=== PATIENT | female | born 1945 | race Caucasian/White ===

== ENCOUNTER 2016-08-19 14:39 | Emergency (ER) | payer OTHER ==
--- NOTE | 2016-08-19 14:56 | EDPHY ---
H & P Stated Complaint: TIRED/HAVING PROB WITH HIGHER THAN NL BLOOD PRESSURE HPI/ROS: CHIEF COMPLAINT: Fatigue, ankle edema HISTORY OF PRESENT ILLNESS: The patient is a 71 y/o female complaining of fatigue and bilateral ankle edema for the last week. She first noticed slight edema in her right ankle beginning 3 months ago. Her PCP, Dr. Anderson, placed her on 12.5mg hydrochlorothiazide, which the patient states she has been taking appropriately. This was not associated with shortness of breath until this morning. After climbing 3 flights of stairs she felt like she had to "forcibly exhale," but recovered quickly upon sitting down. She notes one brief episode of mild chest tightness that lasted only seconds a few days ago. Her PCP's office recommended going to the ED to be evaluated for heart failure today. She also feels like her pulse is elevated at 87 and says her BP has been running "high" at 130-120 systolic and around 85 diastolic. She has a history of chronic sinusitis and denies any changes to those symptoms. She denies recent illness, fever, vomiting, diarrhea, dysuria, or abdominal pain. REVIEW OF SYSTEMS: A ten point review of systems was performed and is negative with the exception of the items mentioned in the HPI. Source: Patient Exam Limitations: No limitations - Personal History Current Tetanus/Diphtheria Vaccine: Yes - Medical/Surgical History PMH: PMH includes: 1. Chronic sinusitis 2. Ankle edema 3. Anxiety 4. GERD Family history: heart failure Hx Asthma: No Hx Chronic Respiratory Disease: No Hx Diabetes: No Hx Cardiac Disease: No Hx Renal Disease: No Hx Cirrhosis: No Hx Alcoholism: No Hx HIV/AIDS: No Hx Splenectomy or Spleen Trauma: No Other PMH: BACK PROBLEMS/TUBAL LIGATION/ GERD/HIATAL HERNIA - Social History Smoking Status: Never smoked Additional Social History: Non-smoker. Drinks more than one glass of wine nightly. 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 PCP: Dr. Anderson - Physical Exam Exam: General Appearance: Alert. Vital signs reviewed. Blood pressure 139/80 Eyes: Pupils equal and round, no conjunctival injection, no discharge. Anicteric. ENT, Mouth: Mucous membranes are moist, no oropharyngeal erythema or edema. Neck: No lymphadenopathy, supple. No JVD. Respiratory: Lungs are clear to auscultation; no wheezes, rales, or rhonchi. Cardiovascular: Regular rate and rhythm; no murmur, rub, or gallop. Gastrointestinal: Abdomen is soft and nontender, no masses or organomegaly, bowel sounds normal. Skin: Warm and dry, no rashes on exposed skin, normal color. Back: Nontender to palpation over the thoracolumbar spine. No CVAT. Extremities: Trace ankle edema slightly worse on right, no calf tenderness or swelling. Neurological: Alert and oriented. Moving all four extremities easily and equally. Psychiatric: Normal affect. Constitutional: Initial Vital Signs Temperature (C) 36.5 C 08/19/16 14:45 Heart Rate 86 08/19/16 14:45 Respiratory Rate 16 08/19/16 14:45 Blood Pressure 139/80 H 08/19/16 14:45 O2 Sat (%) 94 08/19/16 14:45 O2 Delivery Mode Room Air Allergies/Adverse Reactions: morphine Allergy (Verified 08/19/16 14:42) Home Medications: Medication Instructions Recorded Clonazepam [Klonopin] 1 mg PO HS 06/30/11 OLANZAPINE [Zyprexa] 2.5 mg PO HS 06/30/11 Paroxetine HCl 20 mg PO DAILY 06/30/11 RISEDRONATE SODIUM [Actonel] 0 mg PO .MONTHLY 06/30/11 lamoTRIgine [Lamictal] 150 mg PO DAILY 06/30/11 Gabapentin 08/19/16 Hydrochlorothiazide 08/19/16 Lipitor 08/19/16 PRILOSEC 08/19/16 Paxil 08/19/16 Medical Decision Making - Diagnostics EKG Interpretation: The 12 lead EKG was interpreted by myself. EKG shows sinus rhythm rate 77, probable inferior infarct of indeterminate age. No previous EKGs available to compare. See hard copy and/or "tracemaster" electronic copy for interpretation. Imaging: Study: Chest x-ray Indication: Dyspnea Results: Chest x-ray was obtained. The results of the study are 1. Mild bronchitis. 2. No edema or pneumonia. The study was read by the radiologist, Dr. Genao. I viewed the images myself on the PACS system. ED Course/Re-evaluation: This is a 71 y/o female presenting to the ED at the referral of her PCP after a short episode of "forced exhaling" after climbing stairs today in the setting of ongoing mild ankle edema for 2-3 months. This was not associated with shortness of breath, chest pain, fever, lightheadedness, or syncope and respiratory symptoms are not present at time of assessment. She has trace edema to both ankles, worse on the right. Her lungs are clear. Plan for IV, labs including troponin, UA, EKG and chest x-ray. 1705: Repeat BP is 140/90. The patient's workup is largely unremarkable. Chest x-ray does not show evidence of CHF. Troponin is negative. EKG shows sinus rhythm. I discussed these results with her. She will be discharged home with instructions to follow up with her PCP next week as well as return precautions. She will check her blood pressure twice daily and record the readings. She will continue the increased dosing of her hydrochlorothiazide at 25mg daily. She is comfortable with this plan. Differential Diagnosis: I do not find evidence of congestive heart failure/pulmonary edema on her exam or chest x-ray. I do not suspect acute coronary syndrome. She had a very brief episode of chest pain that resolved within seconds and this occurred a few days ago. Troponin tonight is normal. There is nothing that makes me think this could be pulmonary embolus. She does not appear to have infection and I am not concerned about the possibility of pneumonia, influenza, or other infectious process. - Data Points Laboratory Results: Laboratory Results 08/19/16 15:25 08/19/16 15:25 08/19/16 08/19/16 15:45 15:25 WBC 7.38 10^3/uL (3.80-9.50) RBC 4.06 L 10^6/uL (4.18-5.33) Hgb 12.3 L g/dL (12.6-16.3) Hct 36.7 L % (38.0-47.0) MCV 90.4 fL (81.5-99.8) MCH 30.3 pg (27.9-34.1) MCHC 33.5 g/dL (32.4-36.7) RDW 15.4 H % (11.5-15.2) Plt Count 316 10^3/uL (150-400) MPV 9.0 fL (8.7-11.7) Neut % (Auto) 77.0 H % (39.3-74.2) Lymph % (Auto) 14.9 L % (15.0-45.0) [place] % (Auto) 5.4 % (4.5-13.0) Eos % (Auto) 2.0 % (0.6-7.6) Baso % (Auto) 0.3 % (0.3-1.7) Nucleat RBC Rel Count 0.0 % (0.0-0.2) Absolute Neuts (auto) 5.68 10^3/uL (1.70-6.50) Absolute Lymphs (auto) 1.10 10^3/uL (1.00-3.00) Absolute Monos (auto) 0.40 10^3/uL (0.30-0.80) Absolute Eos (auto) 0.15 10^3/uL (0.03-0.40) Absolute Basos (auto) 0.02 10^3/uL (0.02-0.10) Absolute Nucleated RBC 0.00 10^3/uL (0-0.01) Immature Gran % 0.4 % (0.0-1.1) Immature Gran # 0.03 10^3/uL (0.00-0.10) Sodium 139 mEq/L (134-144) Potassium 3.9 mEq/L (3.5-5.2) Chloride 102 mEq/L (97-110) Carbon Dioxide 27 mEq/l (22-31) Anion Gap 10 mEq/L (8-16) BUN 16 mg/dL (7-23) Creatinine 1.0 mg/dL (0.6-1.0) Estimated GFR 55 Glucose 93 mg/dL (70-100) Calcium 9.6 mg/dL (8.5-10.4) Troponin I < 0.012 ng/mL (0-0.034) Urine RBC 1-3 /hpf (0-3) Urine WBC 1-3 /hpf (0-3) Ur Epithelial Cells NONE SEEN /lpf (NONE-1+) Urine Bacteria TRACE H /hpf (NONE SEEN) Hyaline Casts 1-5 /lpf (0-1) Departure - Departure Disposition: Home, Routine, Self-Care Clinical Impression: Ankle edema Condition: Good Instructions: Leg Edema (ED) Additional Instructions: 1. Elevate your legs above the level of your heart when possible. 2. Check your blood pressure once in the morning and once in the evening. Record your measurements for the next week and bring to your next appointment with your PCP. 3. Increase your hydrochlorothiazide to 25mg daily. 4. Follow up with your primary care provider next week. 5. Return to the ED for shortness of breath, chest pain, lightheadedness, fainting, or other worsening of condition. Referrals: Holly Anderson MD [Primary Care Provider] - As per Instructions Report Scribed for: Tori Amin Report Scribed by: Dorothea Alcocer Date of Report: 08/19/16 Time of Report: 14:57
[2016-08-19 15:33] LABS: % IMMATURE GRANULYOCYTES 0.4 % (0.0-1.1); ABSOLUTE IMMATURE GRANULOCYTES 0.03 10^3/uL (0.00-0.10); ADD DIFF? NO; ADD MORPH? NO; ADD SCAN? NO; ATYPICAL LYMPHOCYTE FLAG 10 (0-99); FRAGMENT RBC FLAG 0 (0-99); HEMATOCRIT 36.7 % (38.0-47.0); HEMOGLOBIN 12.3 g/dL (12.6-16.3); LEFT SHIFT FLG 0 (0-99); LIPEMIA HEMOLYSIS FLAG 80 (0-99); MEAN CELL HEMOGLOBIN 30.3 pg (27.9-34.1); MEAN CELL HEMOGLOBIN CONCENTR. 33.5 g/dL (32.4-36.7); MEAN CELL VOLUME 90.4 fL (81.5-99.8); PLATELET CLUMPS FLAG 0 (0-99); PLATELET COUNT 316 10^3/uL (150-400); RED BLOOD CELL COUNT 4.06 10^6/uL (4.18-5.33); RED CELL DISTRIBUTION WIDTH 15.4 % (11.5-15.2)
--- NOTE | 2016-08-19 15:38 | CPEKG ---
Heart Rate: 77 RR Interval: 779 P-R Interval: 156 QRSD Interval: 90 QT Interval: 408 QTC Interval: 462 P Paradise: 51 QRS Paradise: -17 T Wave Paradise: -28 EKG Severity - ABNORMAL ECG - EKG Impression: SINUS RHYTHM EKG Impression: PROBABLE INFERIOR INFARCT, AGE INDETERMINATE EKG Impression: CONSIDER ANTERIOR INFARCT Electronically Signed By: Tori Amin 19-Aug-2016 20:37:09
[2016-08-19 15:43] LABS: ANION GAP 10 mEq/L (8-16); CALCIUM 9.6 mg/dL (8.5-10.4); CARBON DIOXIDE 27 mEq/l (22-31); CHLORIDE 102 mEq/L (97-110); GLOMERULAR FILTRATION RATE 55; GLUCOSE 93 mg/dL (70-100); POTASSIUM 3.9 mEq/L (3.5-5.2); SODIUM 139 mEq/L (134-144)
[2016-08-19 15:55] LABS: TROPONIN I < 0.012 ng/mL (0-0.034)
--- NOTE | 2016-08-19 16:01 | DX ---
PA and Lateral Chest August 19, 2016 Indication: Dyspnea Comparison: Two-view chest dated August 25, 2006 Findings: Lungs are clear except for mild unchanged diffuse peribronchial thickening. New linear opac ity in the peripheral the left base is likely atelectasis. No confluent airspace consolidation, edema , or effusion. The hiatal hernia, tortuous thoracic aorta and multilevel degenerative disease are unc hanged. Heart size remains upper normal. Impression: 1. Mild bronchitis. 2. No edema or pneumonia.
[2016-08-19 16:18] LABS: BACTERIA TRACE /hpf (NONE SEEN)
[2016-08-19 17:17] VITALS: BP 147/94; PULSE 75; RESP 14; TEMP 97.2; O2SAT 96
== END 2016-08-19 17:27 | disposition home or self-care (01) ==
DX: R60.9 Edema, unspecified (principal)

== ENCOUNTER → 2016-10-25 | Outpatient (CLI) | payer OTHER | LOC: FIMAGING 15:36 | DX: Z12.31 Encounter for screening mammogram for malignant neoplasm of breast (principal) | CPT/HCPCS: G0202 ==

== ENCOUNTER → 2016-12-14 | Outpatient (CLI) | payer OTHER | LOC: FIMAGING 11:15 | PROVIDERS: ATTEND Internal Medicine | DX: Z13.820 Encounter for screening for osteoporosis (principal); M85.80 Other specified disorders of bone density and structure, unspecified site ==

== ENCOUNTER → 2017-11-01 | Outpatient (CLI) | payer OTHER | LOC: FIMAGING 09:28 | PROVIDERS: ATTEND Internal Medicine | DX: Z12.31 Encounter for screening mammogram for malignant neoplasm of breast (principal) ==

== ENCOUNTER → 2017-11-24 | Outpatient (CLI) | payer OTHER | LOC: FIMAGING 08:44 | PROVIDERS: ATTEND Internal Medicine | DX: R10.11 Right upper quadrant pain (principal) ==

== ENCOUNTER → 2017-12-12 | Outpatient (CLI) | payer OTHER | LOC: FIMAGING 10:54 | PROVIDERS: ATTEND Internal Medicine Gastroenterology | DX: R10.11 Right upper quadrant pain (principal) | CPT/HCPCS: A9537 ==

== ENCOUNTER → 2018-01-09 | Outpatient (CLI) | payer OTHER ==
[~2018-01-09] MED LIST: IOPAMIDOL (ISOVUE-300) 100 ML BTL ONE
== END ==
LOC: FIMAGING 10:14
PROVIDERS: ATTEND Internal Medicine Gastroenterology
DX: Z98.890 Other specified postprocedural states (principal); Z95.1 Presence of aortocoronary bypass graft; J90 Pleural effusion, not elsewhere classified
CPT/HCPCS: 74177; Q9967

== ENCOUNTER → 2018-02-08 | Outpatient (CLI) | payer OTHER ==
[~2018-02-08] MED LIST changes: +GADOBUTROL 10 ML VIAL IVP ONE; -IOPAMIDOL (ISOVUE-300) 100 ML BTL ONE
== END ==
LOC: FIMAGING 15:09
PROVIDERS: ATTEND Physician Assistant
DX: K44.9 Diaphragmatic hernia without obstruction or gangrene (principal); K76.89 Other specified diseases of liver
CPT/HCPCS: 74183; A9585

== ENCOUNTER 2018-04-17 17:08 | Observation (INO) | payer OTHER ==
[2018-04-17] MEDS ORDERED: MAGNESIUM SULF 2 GM/WATER 50 ML IV ONE (18:21)
[2018-04-17] MEDS ORDERED: ONDANSETRON 4 MG/2 ML VIAL IVP PRN (18:21)
[2018-04-17] MEDS ORDERED: KETOROLAC 30 MG/1 ML SDV IVP PRN (18:21)
[2018-04-17] MEDS ORDERED: HYDROCODONE/APAP 5/325 TAB PO PRN (18:21)
[2018-04-17] MEDS ORDERED: D5W 1/2 NS W/ 20 KCl/L 1,000 ML IV SCH (18:30)
--- NOTE | 2018-04-17 18:55 | GHP ---
DATE OF ADMISSION: 04/17/2018 REASON FOR ADMISSION: Postoperative hypotension. HISTORY OF PRESENT ILLNESS: 73-year-old female status post uncomplicated laparoscopic cholecystectomy at the ambulatory surgery center this afternoon. While in recovery the patient was noted to be hypotensive. She initially responded to fluids and a dose of ephedrine. She was being ready to be discharged and had a near syncopal event when standing with a repeat low blood pressure down to the 50s and 60s. She was given additional fluids and medications with immediate response. She is being admitted at this time for overnight observation. At present time, post resuscitation, the patient is without complaints. She denies chest pains or shortness of breath. She has no abdominal complaints. She has no lightheadedness or dizziness at present time. She does report to having had significant episodes of diarrhea last evening and this morning, as well as minimal p.o. intake. She remains on chronic diuretic therapy as well. PAST MEDICAL HISTORY: Bipolar disease, hypertension, hyperlipidemia, and GERD. PAST SURGICAL HISTORY: Laparoscopic cholecystectomy and tubal ligation. MEDICATIONS: Triamterene/hydrochlorothiazide, atorvastatin, metoprolol, Hycosamine, Paxil, clonazepam, trazodone, Protonix, ranitidine. ALLERGIES: Lisinopril (cough), Augmentin (GI upset). SOCIAL HISTORY: No alcohol, no tobacco. She is . PHYSICAL EXAM: VITAL SIGNS: Blood pressure 120/70, upon discharge. Pulse rate in 70s. GENERAL: The patient is alert, appropriate, comfortable at present time. EYES: Anicteric. NECK: No cervical lymphadenopathy. SKIN: Color good. HEART: Regular without murmurs. LUNGS: Clear bilaterally. ABDOMEN: Soft, nondistended. Minimal incisional tenderness. EXTREMITIES: Without edema. Skin without tenting. NEUROLOGIC: Alert and appropriate x3. LABS: Postoperative hemoglobin 12. Sodium 132, potassium 3.8, chloride 97, CO2 was 28, BUN 13, creatinine 0.7, glucose 138, magnesium 1.4. EKG: Normal sinus rhythm, 75 beats per minute. No acute changes, possible age- indeterminate prior [place] findings. IMPRESSION: Postoperative hypotension, most likely secondary to recent diarrhea , dehydration, and chronic diuretic and antipsychotic therapy. PLAN: Patient is being admitted for overnight observation, fluid resuscitation , any further necessary workup pending the clinical course. /[id number]/MODL MTDD
[2018-04-17] MEDS ORDERED: traZODone 50 MG TAB PO SCH (21:00)
[2018-04-17] MEDS ORDERED: FAMOTIDINE 20 MG TAB PO SCH (21:00)
[2018-04-17] MEDS ORDERED: HYOSCYAMINE SULFATE 0.125 MG TAB PO PRN (22:00)
[2018-04-17] MEDS ORDERED: ONDANSETRON DISINTEGRATING 4 MG TAB PO PRN (22:00)
[2018-04-18 07:55] VITALS: BP 115/66
--- NOTE | 2018-04-18 08:25 | SOAPPROG ---
SOAP Progress Note Assessment/Plan: Assessment/Plan: Overall doing well. No further hypotensive episodes. Plan to discharge to home today. Hold metoprolol until tomorrow. Hold HCTZ until she follows up with her PCP. Encouraged continued oral fluid intake. Follow up in office 2 weeks. 04/18/18 08:26 Subjective: No overnight concerns. No further lightheadedness or dizziness at rest or with ambulation. No chest pain or shortness of breath. No nausea or vomiting. Minimal abdominal soreness. No urinary complaints. Tolerating fluids well. Objective: Vital Signs Temp Pulse Resp BP Pulse Ox 37.0 C 90 16 115/66 90 L 04/18/18 07:55 04/18/18 07:55 04/18/18 07:55 04/18/18 07:55 04/18/18 07:55 Laboratory Results 04/18/18 05:04 04/18/18 05:04 04/17/18 04/18/18 04/19/18 05:59 05:59 05:59 Intake Total 1110 Output Total 100 Balance 1010 PE: Gen: A&O x3, afebrile, appears comfortable HEENT: anicteric Skin: normal Heart: RRR Lungs: CTA bilateral Abdomen: soft, appropriate distension and tenderness. Incisions clean without erythema or drainage Extremities: unremarkable ICD10 Worksheet Patient Problems: Problems Problem Status Onset Biliary colic Acute
[2018-04-18] MEDS ORDERED: PARoxetine HCL 20 MG TAB PO SCH (09:00)
[2018-04-18] MEDS ORDERED: PANTOPRAZOLE SODIUM 40 MG TAB PO SCH (09:00)
== END 2018-04-18 09:36 | disposition home or self-care (01) ==
LOC: F3E 17:28
PROVIDERS: ADMIT Surgery; ATTEND Surgery
DX: I95.81 Postprocedural hypotension (principal); F31.9 Bipolar disorder, unspecified; K21.9 Gastro-esophageal reflux disease without esophagitis; E78.5 Hyperlipidemia, unspecified
CPT/HCPCS: G0378; J3475

== ENCOUNTER 2018-05-08 10:13 | Emergency (ER) | payer OTHER ==
--- NOTE | 2018-05-08 11:15 | EDPHY ---
H & P Stated Complaint: upper body "itching" after eating food, RUQ pain-nausea Time Seen by Provider: 05/08/18 11:06 HPI/ROS: CHIEF COMPLAINT: Chronic abdominal pain, chronic itching nausea and diarrhea HISTORY OF PRESENT ILLNESS: Patient is a 73-year-old female who has had chronic right upper quadrant abdominal pain for the last year. Also itching after she eats comma frequent nausea and diarrhea with yellow stools. She has had extensive workup in the inpatient and outpatient setting. She has had ultrasounds and CTs of her abdomen she has had MRCP and upper GI series. Dr. Little removed her gallbladder 3 weeks ago. She states that this did not improve her symptoms. She has been taking cholestyramine and Benadryl to help control the itching. She also followed up with is 1 week ago who repeated lab tests which were unremarkable. Her next appointment is on May 14. She takes an acids for a small hiatal hernia. She also has history of bipolar disease. She states that her his symptoms are not worse today but simply are not controlled. She has been prescribed hydroxyzine as well but was not sure she could take it or if it would interact with the Zofran. Severity: Moderate Modifying factors: Worsened by eating REVIEW OF SYSTEMS: Constitutional: denies: chills, fever, recent illness, recent injury EENTM: denies: blurred vision, double vision, nose congestion Respiratory: denies: cough, shortness of breath Cardiac: denies: chest pain, irregular heart rate, lightheadedness, palpitations Gastrointestinal/Abdominal: See HPI Genitourinary: denies: dysuria, frequency, hematuria, pain Musculoskeletal: denies: joint pain, muscle pain Skin: denies: lesions, rash, jaundice, bruising Neurological: denies: headache, numbness, paresthesia, tingling, dizziness, weakness Hematologic/Lymphatic: denies: blood clots, easy bleeding, easy bruising Immunologic/allergic: denies: HIV/AIDS, transplant 10 systems reviewed and negative except as noted EXAM: GENERAL: Well-appearing, well-nourished and in no acute distress. HEAD: Atraumatic, normocephalic. EYES: Pupils equal round and reactive to light, extraocular movements intact, sclera anicteric, conjunctiva are normal. ENT: TMs normal, nares patent, oropharynx clear without exudates. Moist mucous membranes. NECK: Normal range of motion, supple without lymphadenopathy or JVD. LUNGS: Breath sounds clear to auscultation bilaterally and equal. No wheezes rales or rhonchi. HEART: Regular rate and rhythm without murmurs, rubs or gallops. ABDOMEN: Soft, nontender, normoactive bowel sounds. No guarding, no rebound. No masses appreciated. BACK: No CVA tenderness, no spinal tenderness, step-offs or deformities EXTREMITIES: Normal range of motion, no pitting or edema. No clubbing or cyanosis. NEUROLOGICAL: Cranial nerves II through XII grossly intact. Normal speech, normal gait. 5/5 strength, normal movement in all extremities, normal sensation , normal reflexes PSYCH: Normal mood, normal affect. SKIN: Warm, dry, normal turgor, no visible rashes or lesions. Source: Patient Exam Limitations: No limitations - Medical/Surgical History Hx Asthma: No Hx Chronic Respiratory Disease: No Hx Diabetes: No Hx Cardiac Disease: No Hx Renal Disease: No Hx Cirrhosis: No Hx Alcoholism: No Hx HIV/AIDS: No Hx Splenectomy or Spleen Trauma: No Other PMH: BACK PROBLEMS/TUBAL LIGATION/ GERD/HIATAL HERNIA, hemal - Family History Significant Family History: No pertinent family hx - Social History Smoking Status: Never smoked Alcohol Use: Sober Drug Use: None Constitutional: Initial Vital Signs Temperature (C) 37.1 C 05/08/18 10:18 Heart Rate 77 05/08/18 10:18 Respiratory Rate 16 05/08/18 10:18 Blood Pressure 121/72 H 05/08/18 10:18 O2 Sat (%) 97 05/08/18 10:18 O2 Delivery Mode Room Air Allergies/Adverse Reactions: amoxicillin [From Augmentin] Allergy (Verified 04/17/18 18:46) Diarrhea clavulanic acid [From Augmentin] Allergy (Verified 04/17/18 18:46) Diarrhea lisinopril Allergy (Verified 04/17/18 18:46) Other-Enter Comments morphine Allergy (Verified 04/17/18 18:46) Itching Home Medications: Medication Instructions Recorded Clonazepam [Klonopin] 0.75 mg PO HS 06/30/11 Atorvastatin Calcium [Lipitor 20 20 mg PO HS 04/17/18 mg (*)] Hyoscyamine Sulfate [Levsin, 0.125 mg PO TID PRN 04/17/18 Hyomax-Sl 0.125 mg (*)] Metoprolol Tartrate [Lopressor 25 25 mg PO DAILY 04/17/18 mg (*)] Ondansetron Odt [Zofran Odt 4 mg 4 mg PO Q4 PRN 04/17/18 (*)] PARoxetine HCL [Paxil 20mg (*)] 20 mg PO DAILY 04/17/18 Pantoprazole Sodium [Protonix 40mg 40 mg PO DAILY 04/17/18 (*)] Ranitidine HCl 300 mg PO HS 04/17/18 Triamterene/Hydrochlorothiazid 1 each PO DAILY 04/17/18 [Triamterene-Hctz 37.5-25 mg Tb] traZODone [traZODONE 50MG (*)] 25 mg PO HS 04/17/18 Hydrocodone/APAP 5/325 [[place] 1 - 2 tab PO Q4HRS PRN tab 04/18/18 5/325 (*)] Metoclopramide [Reglan 10 mg tab 10 mg PO BID PRN 7 Days tab 05/08/18 (RX)] Medical Decision Making ED Course/Re-evaluation: The patient has a benign abdominal exam. She is not jaundice. Her recent lab work is unremarkable. I offered to repeat lab work but she declined. She does not want repeat imaging either. We discussed options. She would like to try with a hydroxyzine. I reassured her that it should be safe. I also will try Reglan to see if that controls her nausea better. I also told her I would speak with of the [facility] to see if I could move her appointment up from May 14. She seems satisfied with this and does not want any further testing at this time. We discussed indications for returning to the ER. Differential Diagnosis: Partial list of the Differential diagnosis considered include but were not limited to; chronic abdominal pain, electrolyte abnormality, hyperbilirubinemia and although unlikely based on the history and physical exam , I also considered sepsis, abscess, perforation. I discussed these differential diagnoses and the plan with the patient as well as the usual and expected course. The patient understands that the diagnosis is provisional and that in medicine we are not always correct and that further workup is often warranted. Usual and customary warnings were given. All of the patient's questions were answered. The patient was instructed to return to the emergency department should the symptoms at all worsen or return, otherwise to followup with the physician as we discussed. - Data Points Medications Given: Discontinued Medications Hydroxyzine HCl (Hydroxyzine Hcl) 25 mg PO ONCE ONE Stop: 05/08/18 11:17 Last Admin: 05/08/18 11:25 Dose: Not Given Metoclopramide HCl (Reglan) 10 mg PO EDNOW ONE Stop: 05/08/18 11:21 Last Admin: 05/08/18 11:24 Dose: 10 mg Departure - Departure Disposition: Home, Routine, Self-Care Clinical Impression: Itching, Chronic abdominal pain Condition: Fair Instructions: Itchy Skin (ED), Chronic Abdominal Pain (ED) Additional Instructions: Continue taking hydroxyzine as prescribed. Try taking the Reglan instead of Zofran and see if it works better. Follow up with gastrology as discussed call their office to schedule appointment and make sure they are aware that you were at the ER and the ER doctor talk to Dr. Sandoval. Referrals: Holly Anderson MD [Primary Care Provider] - As per Instructions Amber Preciado MD [Medical Doctor] - As per Instructions Donn Sheriff MD [place] [place] - As per Instructions Prescriptions: Metoclopramide [Reglan 10 mg tab (RX)] 10 mg PO BID PRN 7 Days tab PRN Reason: *Nausea & Vomiting
[2018-05-08] MEDS ORDERED: hydrOXYzine HCL 25 MG TAB PO ONE (11:16)
[2018-05-08] MEDS ORDERED: METOCLOPRAMIDE 10 MG/2 ML VIAL IVP ONE (11:20)
[2018-05-08] MEDS ORDERED: METOCLOPRAMIDE 10 MG TAB PO ONE (11:20)
[2018-05-08 11:39] VITALS: BP 148/81
== END 2018-05-08 11:48 | disposition home or self-care (01) ==
DX: R10.11 Right upper quadrant pain (principal); L29.9 Pruritus, unspecified; K44.9 Diaphragmatic hernia without obstruction or gangrene; K21.9 Gastro-esophageal reflux disease without esophagitis

== ENCOUNTER 2018-07-16 07:07 | Day surgery (SDC) | payer OTHER ==
[2018-07-16] MEDS ORDERED: LR 1,000 ML IV ONE (07:38)
--- NOTE | 2018-07-16 08:03 | PDANEPAE ---
ANE History of Present Illness EUS EGD ANE Past Medical History - Cardiovascular History Hx Hypertension: Yes Hx Arrhythmias: No Hx Chest Pain: No Hx Coronary Artery / Peripheral Vascular Disease: No Hx CHF / Valvular Disease: No Hx Palpitations: No Cardiovascular History Comment: HEART MURMUR - Pulmonary History Hx COPD: No Hx Asthma/Reactive Airway Disease: No Hx Recent Upper Respiratory Infection: No Hx Oxygen in Use at Home: No Hx Sleep Apnea: No Sleep Apnea Screening Result - Last Documented: Negative - Neurologic History Hx Cerebrovascular Accident: No Hx Seizures: No Hx Dementia: No - Endocrine History Hx Diabetes: No - Renal History Hx Renal Disorders: No - Liver History Hx Hepatic Disorders: No - Neurological & Psychiatric Hx Hx Neurological and Psychiatric Disorders: Yes Neurological / Psychiatric History Comment: ANXIETY/DEPRESSION - Cancer History Hx Cancer: No - Congenital Disorder History Hx Congenital Disorders: No - GI History Hx Gastrointestinal Disorders: Yes Gastrointestinal History Comment: GERARD'S ESOPHAGUS. HIATAL HERNIA. GERD. CHRONIC DIARRHEA - Other Health History Other Health History: OSTEOPOROSIS. PREV PELVIC FRACTURES. MILD SCOLIOSIS - Chronic Pain History Chronic Pain: Yes (BACK) - Surgical History Prior Surgeries: ROSE. TUBAL LIGATION. EGD ANE Review of Systems Review of systems is: negative Review of Systems: - Exercise capacity METS (RN): 4 METS ANE Patient History - Allergies Allergies/Adverse Reactions: amoxicillin [From Augmentin] Allergy (Verified 04/17/18 18:46) Diarrhea clavulanic acid [From Augmentin] Allergy (Verified 04/17/18 18:46) Diarrhea lisinopril Allergy (Verified 04/17/18 18:46) Other-Enter Comments morphine Allergy (Verified 04/17/18 18:46) Itching - Home Medications Home medications: home medication list seen and reviewed Home Medications: Clonazepam [Klonopin] 0.75 mg PO HS 06/30/11 [Last Taken 07/15/18] Atorvastatin Calcium [Lipitor 20 mg (*)] 20 mg PO DAILY 04/17/18 [Last Taken 04/24] PARoxetine HCL [Paxil 20mg (*)] 20 mg PO DAILY 04/17/18 [Last Taken 07/15/18] Pantoprazole Sodium [Protonix 40mg (*)] 40 mg PO DAILY 04/17/18 [Last Taken 04/24] traZODone [traZODONE 50MG (*)] 25 mg PO HS 04/17/18 [Last Taken 07/15/18] Losartan Potassium HS 07/13/18 [Last Taken 07/15/18] Zantac HS 07/13/18 [Last Taken 07/15/18] Bentyl 10 MG (*) 07/16/18 [Last Taken 07/15/18] CHOLESTYRAMINE POWDER 07/16/18 [Last Taken 06/03/18] Gabapentin 07/16/18 [Last Taken 1 Week Ago ~07/09/18] Hydroxyzine HCl 07/16/18 [Last Taken 07/15/18] Zofran 07/16/18 [Last Taken 07/14/18] - NPO status NPO Since - Liquids (Date): 07/15/18 NPO Since - Liquids (Time): 21:00 NPO Since - Solids (Date): 07/15/18 NPO Since - Solids (Time): 18:30 - Anes Hx Anes Hx: no prior problems - Smoking Hx Smoking Status: Never smoked - Family Anes Hx Family Anes Hx: none ANE Labs/Vital Signs - Vital Signs Vital Signs: reviewed preoperatively; see RN documention for details Blood Pressure: 124/73 Heart Rate: 73 Respiratory Rate: 18 O2 Sat (%): 96 Height: 151.77 cm Weight: 52.163 kg ANE Physical Exam - Airway Neck exam: FROM Mallampati Score: Class 1 Mouth exam: normal dental/mouth exam - Pulmonary Pulmonary: no respiratory distress - Cardiovascular Cardiovascular: regular rate and rhythym - ASA Status ASA Status: II ANE Anesthesia Plan Total IV Anesthesia: Yes
[2018-07-16] MEDS ORDERED: INDOMETHACIN 50 MG SUPP PR PRN (08:23)
--- NOTE | 2018-07-16 08:23 | PDGENHP ---
History & Physical Chief Complaint: ruq abdominal pain History of Present Illness: 73 year old female presents for evaluation of weight loss, nausea, and RUQ abdominal pain Pertinent Past, Social, Family History: PMHx: HTN, depression. PSurgHx: Tubal ligation, CCY Relevant Physical Exam: HEENT: anicteric. CV: RRR +s1s2. lungs: CTAB No w/r/ r. Abd: soft, tender in midepi Cardiorespiratory Assessment: ASA 2
[2018-07-16] MEDS ORDERED: NS 500 ML IV SCH (08:30)
[2018-07-16] MEDS ORDERED: PROPOFOL/EMULSION 500 MG/50 ML BOTTLE IV ONE (08:44)
[2018-07-16] MEDS ORDERED: LIDOCAINE 2% 100 MG/5 ML SYR ONE (08:45)
[2018-07-16] MEDS ORDERED: oxyCODONE IR 5 MG TAB PO PRN (09:18)
[2018-07-16] MEDS ORDERED: DEXAMETHASONE 4 MG/ML VIAL IVP PRN (09:18)
[2018-07-16] MEDS ORDERED: NALOXONE HCL 0.4 MG/ML INJ IVP PRN (09:18)
[2018-07-16] MEDS ORDERED: HYDROCODONE/APAP 5/325 TAB PO PRN (09:18)
[2018-07-16] MEDS ORDERED: HYDROmorphONE/DILAUDID 2 MG/ML INJ IVP PRN (09:18)
[2018-07-16] MEDS ORDERED: ACETAMINOPHEN 500 MG TAB PO PRN (09:18)
[2018-07-16] MEDS ORDERED: ONDANSETRON 4 MG/2 ML VIAL IVP PRN (09:18)
[2018-07-16] MEDS ORDERED: PROMETHAZINE HCL 25 MG/ML INJ IVP PRN (09:18)
[2018-07-16] MEDS ORDERED: fentaNYL 100 MCG/2 ML INJ IVP PRN (09:18)
--- NOTE | 2018-07-16 09:18 | POSTANESTH ---
Post Anesthetic Evaluation Cardiovascular Status: Normal, Stable Respiratory Status: Normal, Stable Level of Consciousness/Mental Status: Can Participate in Eval, Moderately Sleepy Pain Control: Adequate, Prn Tx Ordered Nausea/Vomiting Control: Adequate, Prn Tx Ordered Complications Possibly Related to Anesthesia: None Noted
--- NOTE | 2018-07-16 09:32 | GIREPORT ---
[facility] Surgical Services - Endoscopy Department Patient Name: Joann Luna Procedure Date: 07/16/2018 8:41 AM Patient Type: Outpatient Attending MD/ ER Physician: Hector Sandoval MD Procedure: Upper EUS Indications: Abdominal pain in the right upper quadrant, Nausea, Weight loss Patient Profile: 73 year old female presents for evaluation of RUQ abdominal pain, nause a, and weight loss. Providers: Hector Sandoval MD Medicines: Monitored Anesthesia Care Complications: No immediate complications. Estimated blood loss: Minimal. Description of Procedure: After obtaining informed consent, the endoscope was passed under direct vision. Throughout the procedure, the patient's blood pressure, pulse, and oxygen saturations were monitored continuously. The Endosonoscope was introduced through the mouth, and advanced to the second part of duoden um. The esophagus, stomach, and duodenum was visualzied endosonographically . The Endoscope was introduced through the mouth, and advanced to the second part of duodenum. Findings: Endoscopic Finding : The examined esophagus was normal. A large hiatal hernia was present. Patchy moderately erythematous mucosa was found in the entire examined stomach. Biopsies were taken with a cold forceps for histology. The examined duodenum was normal. Biopsies for histology were taken wit h a cold forceps for evaluation of celiac disease. Endosonographic Finding : There was no sign of significant endosonographic abnormality in the com mon bile duct. The maximum diameter of the duct was 7 mm. There was no sign of significant endosonographic abnormality in the visualized portion of the liver. No masses were identified. No lymphadenopathy seen. Pancreatic parenchymal abnormalities were noted in the entire pancreas. These consisted of hyperechoic foci. The pancreatic duct had a prominently branched endosonographic appearan ce and had hyperechoic imchelle in the entire pancreas. Estimated Blood Loss: Estimated blood loss was minimal. Post Op Diagnosis: - Normal esophagus. - Large hiatal hernia. - Erythematous mucosa in the stomach. Biopsied. - Normal examined duodenum. Biopsied. - There was no sign of significant pathology in the common bile duct. - There was no evidence of significant pathology in the visualized port ion of the liver. - Pancreatic parenchymal abnormalities consisting of hyperechoic foci w ere noted in the entire pancreas. - The pancreatic duct had a prominently branched endosonographic appear ance and had hyperechoic michelle in the entire pancreas. - Etiology? No obvious cause of symptoms. Await biopsy results. No CBD stone. No pancreatic mass. Recommendation: - Discharge patient to home (with escort). - Await path results. - Return to GI office in 4 weeks. - Repeat LFTs, amylase lipase in 1 week - Trial of TCA versus other? - Thank you for allowing me to participate in the care of your patient. Hector Sandoval MD Hector Sandoval MD 07/16/2018 9:32:47 AM This report has been signed electronicallyHector Sandoval MD Number of Addenda: 0 Note Initiated On: 07/16/2018 8:41 AM [email or web address]
[2018-07-16 11:09] VITALS: BP 110/86
== END 2018-07-16 10:41 | disposition home or self-care (01) ==
LOC: FSGY 07:07
PROVIDERS: ATTEND Internal Medicine Gastroenterology
PROC: 0DB68ZX Excision of Stomach, Via Natural or Artificial Opening Endoscopic, Diagnostic (ICD-10-PCS; principal; 2018-07-16 08:15)
PROC: 0DB98ZX Excision of Duodenum, Via Natural or Artificial Opening Endoscopic, Diagnostic (ICD-10-PCS; principal; 2018-07-16 08:15)
DX: R10.11 Right upper quadrant pain (principal); R11.0 Nausea; R63.4 Abnormal weight loss; K44.9 Diaphragmatic hernia without obstruction or gangrene
CPT/HCPCS: J2001; J2704

== ENCOUNTER 2018-10-20 09:29 | Emergency (ER) | payer OTHER ==
--- NOTE | 2018-10-20 09:55 | EDPHY ---
H & P Time Seen by Provider: 10/20/18 09:38 HPI/ROS: Chief complaint. Abdominal pain HPI. Patient is 73-year-old female with chronic abdominal pain in GI symptoms for the past 10 months. She had a cholecystectomy in April 2018. She has GERD and hiatal hernia. She has had a large abdominal workup including endoscopies. She had right-sided abdominal pain and nausea that began about 4: 00 a.m. This morning. No cough or fever. No vomiting or diarrhea with the nausea. Right-sided abdominal pain without radiation. No urinary symptoms. ROS 10 systems were reviewed and negative with the exception of the elements mentioned in the history of present illness Past Medical/Surgical History: Tubal ligation, GERD, hiatal hernia, cholecystectomy, depression Social History: Divorce, nonsmoker, no alcohol Smoking Status: Never smoked Physical Exam: General Appearance: Alert well-developed female mild distress vital signs are stable Eyes: Pupils equal and round no pallor or injection. ENT, Mouth: Mucous membranes are moist. Respiratory: There are no retractions, lungs are clear to auscultation. Cardiovascular: Regular rate and rhythm. Gastrointestinal: Abdomen is soft with right-sided abdominal pain. No masses. Normal bowel sounds Neurological: Awake and alert, sensory and motor exams grossly normal. Skin: Warm and dry, no rashes. Musculoskeletal: Neck is supple nontender. Extremities symmetrical, full range of motion. Psychiatric: Patient is oriented X 3, there is no agitation. Constitutional: Initial Vital Signs Temperature (C) 37.2 C 10/20/18 09:33 Heart Rate 79 10/20/18 09:33 Respiratory Rate 16 10/20/18 09:33 Blood Pressure 133/73 H 10/20/18 09:33 O2 Sat (%) 97 10/20/18 09:33 O2 Delivery Mode Room Air Allergies/Adverse Reactions: amoxicillin [From Augmentin] Allergy (Verified 04/17/18 18:46) Diarrhea clavulanic acid [From Augmentin] Allergy (Verified 04/17/18 18:46) Diarrhea lisinopril Allergy (Verified 04/17/18 18:46) Other-Enter Comments morphine Allergy (Verified 04/17/18 18:46) Itching Home Medications: Medication Instructions Recorded Clonazepam [Klonopin] 0.75 mg PO HS 06/30/11 Atorvastatin Calcium [Lipitor 20 20 mg PO DAILY 04/17/18 mg (*)] PARoxetine HCL [Paxil 20mg (*)] 20 mg PO DAILY 04/17/18 Pantoprazole Sodium [Protonix 40mg 40 mg PO DAILY 04/17/18 (*)] traZODone [traZODONE 50MG (*)] 25 mg PO HS 04/17/18 Losartan Potassium HS 07/13/18 Zantac HS 07/13/18 Bentyl 10 MG (*) 07/16/18 CHOLESTYRAMINE POWDER 07/16/18 Gabapentin 07/16/18 Hydroxyzine HCl 07/16/18 Zofran 07/16/18 Medical Decision Making - Diagnostics Imaging Results: CT abdomen pelvis with IV contrast shows constipation but otherwise no acute findings. Reviewed by me and discussed with Dr. Genao Procedures: IV normal saline ED Course/Re-evaluation: Re-evaluation 11:55 a.m.. Patient and I discussed the imaging and laboratory evaluation. We discussed treatment plan including criteria for return importance of follow-up and further evaluation. She expresses understanding and agreement Differential Diagnosis: I considered diverticulitis, appendicitis, pancreatitis. - Data Points Laboratory Results: Laboratory Results 10/20/18 10:10 10/20/18 10:10 10/20/18 10/20/18 10:10 10:10 WBC 5.14 10^3/uL 10^3/uL (3.80-9.50) RBC 4.60 10^6/uL 10^6/uL (4.18-5.33) Hgb 14.4 g/dL g/dL (12.6-16.3) Hct 43.2 % % (38.0-47.0) MCV 93.9 fL fL (81.5-99.8) MCH 31.3 pg pg (27.9-34.1) MCHC 33.3 g/dL g/dL (32.4-36.7) RDW 13.6 % % (11.5-15.2) Plt Count 265 10^3/uL 10^3/uL (150-400) MPV 9.2 fL fL (8.7-11.7) Neut % (Auto) 75.1 % H % (39.3-74.2) Lymph % (Auto) 15.8 % % (15.0-45.0) [place] % (Auto) 5.4 % % (4.5-13.0) Eos % (Auto) 2.7 % % (0.6-7.6) Baso % (Auto) 0.6 % % (0.3-1.7) Nucleat RBC Rel Count 0.0 % % (0.0-0.2) Absolute Neuts (auto) 3.86 10^3/uL 10^3/uL (1.70-6.50) Absolute Lymphs (auto) 0.81 10^3/uL L 10^3/uL (1.00-3.00) Absolute Monos (auto) 0.28 10^3/uL L 10^3/uL (0.30-0.80) Absolute Eos (auto) 0.14 10^3/uL 10^3/uL (0.03-0.40) Absolute Basos (auto) 0.03 10^3/uL 10^3/uL (0.02-0.10) Absolute Nucleated RBC 0.00 10^3/uL 10^3/uL (0-0.01) Immature Gran % 0.4 % % (0.0-1.1) Immature Gran # 0.02 10^3/uL 10^3/uL (0.00-0.10) Sodium 136 mEq/L mEq/L (135-145) Potassium 4.2 mEq/L mEq/L (3.5-5.2) Chloride 102 mEq/L mEq/L (97-110) Carbon Dioxide 23 mEq/l mEq/l (22-31) Anion Gap 11 mEq/L mEq/L (6-14) BUN 14 mg/dL mg/dL (7-23) Creatinine 0.8 mg/dL mg/dL (0.6-1.0) Estimated GFR > 60 Glucose 97 mg/dL mg/dL (70-100) Calcium 9.7 mg/dL mg/dL (8.5-10.4) Total Bilirubin 1.0 mg/dL mg/dL (0.1-1.4) Conjugated Bilirubin 0.3 mg/dL mg/dL (0.0-0.5) Unconjugated Bilirubin 0.7 mg/dL mg/dL (0.0-1.1) AST 27 IU/L IU/L (14-46) ALT 30 IU/L IU/L (9-52) Alkaline Phosphatase 58 IU/L IU/L (38-126) Total Protein 6.8 g/dL g/dL (6.3-8.2) Albumin 4.1 g/dL g/dL (3.5-5.0) Lipase 87 IU/L IU/L (23-300) Departure - Departure Disposition: Home, Routine, Self-Care Clinical Impression: Abdominal pain Condition: Good Instructions: Abdominal Pain (ED), Constipation (ED) Additional Instructions: Increased fluids, fruit juice, prune juice Continue regular medications Return for worsening pain, vomiting, fever Re-evaluation by Dr. Medrano to discuss further or change of medication. Referrals: Anastasiia Medrano MD [Primary Care Provider] - 2-3 days, call for appt.
[2018-10-20 10:19] LABS: PLATELET COUNT 265 10^3/uL (150-400)
[2018-10-20] MEDS ORDERED: IOPAMIDOL (ISOVUE-300) 100 ML BTL ONE (10:56)
[2018-10-20 11:43] VITALS: BP 142/79
== END 2018-10-20 12:23 | disposition home or self-care (01) ==
DX: R10.9 Unspecified abdominal pain (principal); K21.9 Gastro-esophageal reflux disease without esophagitis; K44.9 Diaphragmatic hernia without obstruction or gangrene
CPT/HCPCS: 74177; 99285; Q9967